=== PATIENT | male | born 1990 | race Caucasian/White ===

== ENCOUNTER 2018-05-05 20:32 | Emergency (ER) | payer SELFPAY ==
[~2018-05-05] VITALS: Ht 175.3 cm; Wt 74.8 kg
--- NOTE | 2018-05-05 20:32 | NUR ---
PATIENT PRESENTS TO ED WITH altered mental status etoh. PT BIBA [facility] STATES PATIENT WAS FOUND BY PD AT [facility]. AAOX3; PATIENT IS NON COOPERATIVE AND REFUSES TO ANSWER QUESTIONS DURING NURSING ASSESSMENT AND TRIAGE. PATIENT STATES "JUST KILL ME" WHEN ASKED ABOUT PRIOR HISTORY OF HARM TO SELF OR OTHERS PATIENT CONTINUES TO STATE "JUST KILL ME". PATIENS IS AGITATED AND RESTLESS AT THIS TIME. PATIENTS HR IS TACHY 120, RR EBVEN AND UNLABORED AT THIS TIME. PATIENT STATES HE WAS DRINKING BUT DOES NOT RECALL HOW MUCH. WILL CONTINUE TO MONITOR PATIENT AND WILL RE ASSESS AT A LATER TIME WHEN PATIENT IS COOPERATIVE. ER MD MADE AWARE OF PATIENT STATUS.
--- NOTE | 2018-05-05 20:32 | NUR ---
Patient BIBA BLS, transferred to bed 5. RN evaluating patient at bedside.
[2018-05-05 20:45] VITALS: BP 138/81
--- NOTE | 2018-05-05 21:35 | NUR ---
PATIENT AGITATED SITTING AT EDGE OF THE BED. PATIENT IS NON COOPERATIVE WITH STAFF AT THIS TIME. WILL CONTINUE TO TRY TO CALM PATIENT DOWN.
[2018-05-05 21:37] LABS: BASOPHILS # (AUTO) 0.2 K/uL (0.00-0.22); BASOPHILS % (AUTO) 1.2 % (0.0-2.0); EOSINOPHILS % (AUTO) 0.2 % (0.0-4.0); HEMATOCRIT 45.2 % (36-52); HEMOGLOBIN 15.4 g/dL (12.0-18.0); LYMPHOCYTES # (AUTO) 4.3 K/uL (2.0-11.5); LYMPHOCYTES % (AUTO) 24.2 % (20.5-51.1); MEAN CORPUSCULAR HEMOGLOBIN 28 pg (27-31); MEAN CORPUSCULAR HGB CONC 34 g/dL (33-37); MONOCYTES # (AUTO) 0.9 K/uL (0.8-1.0); MONOCYTES % (AUTO) 4.9 % (1.7-9.3); NEUTROPHILS # (AUTO) 12.5 K/uL (1.8-7.7); NEUTROPHILS % (AUTO) 69.5 % (42.2-75.2); PLATELET COUNT (AUTO) 393 K/uL (140-450); RED BLOOD CELL COUNT(AUTO) 5.44 MIL/uL (4.20-6.10); RED CELL DISTRIBUTION WIDTH 12.8 % (11.6-13.7)
[2018-05-05 21:51] LABS: POTASSIUM 3.3 mmol/L (3.5-5.1)
[2018-05-05 21:52] LABS: ANION GAP 16.6 (8-16); CARBON DIOXIDE 23.7 mmol/L (21-32); CREATININE 1.1 mg/dL (0.7-1.3)
--- NOTE | 2018-05-05 21:54 | NUR ---
PATIENT RESTING IN BED AT THIS TIME. ER MD MADE AWARE UNABLE TO GET URINE.
[2018-05-05 22:03] LABS: ALBUMIN 4.3 g/dL (3.4-5.0); TOTAL BILIRUBIN 0.2 mg/dL (0.0-1.0)
--- NOTE | 2018-05-06 00:03 | NUR ---
MOTHER AT BEDSIDE
--- NOTE | 2018-05-06 00:24 | NUR ---
URINE COLLECTED. SENT TO LAB. LESLI SPRING MADE AWARE.
[2018-05-06 01:02] LABS: BARBITURATE, URINE NEG. ng/ml (NEG <=200); BENZODIAZEPINE, URINE NEG. ng/mL (NEG <=200); CANNABINOID, URINE NEG. ng/mL (NEG <=50); COCAINE, URINE NEG. ng/mL (NEG <=300); OPIATE, URINE NEG. ng/mL (NEG <=2000); PHENCYCLIDINE SCREEN,URINE NEG. ng/mL (NEG <=25)
--- NOTE | 2018-05-06 02:03 | NUR ---
Patient discharged BY DR. ENNIS with v/s stable. Written and verbal after care instructions given and explained. Patient verbalized understanding. Ambulatory with steady gait. All questions addressed prior to discharge. Advised to follow up with PMD.
[2018-05-06 02:04] VITALS: BP 127/73
== END 2018-05-06 02:03 | disposition home or self-care (01) ==
LOC: MED 20:32
DX: F10.129 Alcohol abuse with intoxication, unspecified (principal); Y90.8 Blood alcohol level of 240 mg/100 ml or more
CPT/HCPCS: 36415; 80053; 80305; 85025; 99284; G0482

== ENCOUNTER 2019-02-04 20:34 | Emergency (ER) | payer MEDICAID ==
[~2019-02-04] VITALS: Ht 170.2 cm; Wt 113.2 kg
[2019-02-04 20:53] VITALS: BP 151/99
--- NOTE | 2019-02-04 21:27 | NUR ---
pt ambulated to bed 11
--- NOTE | 2019-02-04 21:42 | NUR ---
28 YO M BIB SELF TO ED C/O 5/10 ROLLE IN THE FRONTAL REGION. DENIES NVD, FEVER OR CHILLS. -- PT A/O X 4. SKIN PINK/DRY/INTACT. FOLLOWS COMMANDS AND BEHAVES APPROPRIATELY. -- PMH: HTN -- RX: NORVASC (DOES NOT TAKE REGULARLY) PT POSITIONED FOR COMFORT. HOB ELEVATED. SIDE RAIL UP X1. BED IN LOWEST POSITION. VSS. NO APPARENT DISTRESS AT THIS TIME.
--- NOTE | 2019-02-04 22:33 | NUR ---
DR. ENNIS EVALUATING AT BEDSIDE.
[2019-02-04 22:38] VITALS: BP 136/79
--- NOTE | 2019-02-04 22:38 | NUR ---
Patient discharged with v/s stable. Written and verbal after care instructions given and explained. Patient verbalized understanding. Ambulatory with steady gait. All questions addressed prior to discharge. Advised to follow up with PMD. Discharged by Dr. Kennedy.
== END 2019-02-04 22:38 | disposition home or self-care (01) ==
LOC: MED 20:34
DX: I10 Essential (primary) hypertension (principal)
CPT/HCPCS: 99283

== ENCOUNTER 2020-05-01 14:39 | Emergency (ER) | payer MEDICAID, OTHER ==
[~2020-05-01] VITALS: Ht 170.2 cm; Wt 95.3 kg
[2020-05-01 14:54] VITALS: BP 131/85
--- NOTE | 2020-05-01 14:57 | NUR ---
PT AMBULATED TO ER BED 03
--- NOTE | 2020-05-01 15:00 | NUR ---
XRAY AT BEDSIDE
--- NOTE | 2020-05-01 15:05 | NUR ---
C/O OUTER L FOOT PAIN S/P TRIPPING WHILE HIKING TODAY. NO OBVIOUS DEFORMITY NOTED TO FOOT. PT IS AMBULATORY WITH PAIN. CMS INTACT.
[2020-05-01] MEDS: KETOROLAC 30 MG/ML VIAL IM ONE (15:59)
[2020-05-01 16:20] VITALS: BP 131/85
== END 2020-05-01 16:20 | disposition home or self-care (01) ==
LOC: MED 14:39
DX: S92.352A Displaced fracture of fifth metatarsal bone, left foot, initial encounter for closed fracture (principal); S92.342A Displaced fracture of fourth metatarsal bone, left foot, initial encounter for closed fracture; I10 Essential (primary) hypertension; X58.XXXA Exposure to other specified factors, initial encounter; Y93.89 Activity, other specified; Y92.89 Other specified places as the place of occurrence of the external cause; Y99.8 Other external cause status
CPT/HCPCS: 73630; 96372; 99283; J1885; Q0092

== ENCOUNTER 2021-12-04 03:35 | Emergency (ER) | payer OTHER ==
[~2021-12-04] VITALS: Ht 170.2 cm; Wt 104.3 kg
[2021-12-04 03:41] VITALS: BP 150/98
--- NOTE | 2021-12-04 03:47 | NUR ---
LEFT EARACHE X 1 DAY. NO DRAINAGE OR DISCHARGE NOTED. DR ENNIS EXAMINING IN TRIAGE
[2021-12-04] MEDS ORDERED: AMOX-1000 PO (03:48)
[2021-12-04] MEDS ORDERED: NAPR-54 PO (03:48)
[2021-12-04 04:00] VITALS: BP 150/98
--- NOTE | 2021-12-04 04:00 | NUR ---
Patient discharged with v/s stable. Written and verbal after care instructions given and explained. Patient alert, oriented and verbalized understanding of instructions. Ambulatory with steady gait. All questions addressed prior to discharge. ID band removed. Patient advised to follow up with PMD. Rx of AUGMENTIN AND NAPROSYN given. Patient educated on indication of medication including possible reaction and side effects. Opportunity to ask questions provided and answered.
== END 2021-12-04 04:00 | disposition home or self-care (01) ==
LOC: MED 03:35
DX: H65.192 Other acute nonsuppurative otitis media, left ear (principal); I10 Essential (primary) hypertension; Z79.1 Long term (current) use of non-steroidal anti-inflammatories (NSAID); Z79.2 Long term (current) use of antibiotics
CPT/HCPCS: 99283

== ENCOUNTER 2023-04-17 20:18 | Emergency (ER) | payer OTHER ==
[~2023-04-17] VITALS: Ht 172.7 cm; Wt 131.5 kg
[~2023-04-17 20:18] MED LIST: AMOX-1000 PO; NAPR-54 PO
[2023-04-17 20:20] VITALS: BP 128/100
--- NOTE | 2023-04-17 20:23 | NUR ---
TO LOBBY A/W BED AMBULATORY
[2023-04-17] MEDS ORDERED: KETOROLAC 15 MG/ML VIAL IM ONE (20:50)
--- NOTE | 2023-04-17 21:03 | NUR ---
pt is complaining headache and right sided numbess. pt said that he is under stress lately, otherwise awalke alert and oriented x4.
--- NOTE | 2023-04-17 21:04 | NUR ---
PT TO BED #7
[2023-04-17 21:13] LABS: BASOPHILS # (AUTO) 0.1 K/uL (0.00-0.22); BASOPHILS % (AUTO) 0.6 % (0.0-2.0); EOSINOPHILS # (AUTO) 0.2 K/uL (0-0.4); EOSINOPHILS % (AUTO) 1.6 % (0.0-4.0); HEMATOCRIT 42.8 % (36-52); HEMOGLOBIN 14.3 g/dL (12.0-18.0); LYMPHOCYTES # (AUTO) 2.8 K/uL (2.0-11.5); LYMPHOCYTES % (AUTO) 21.3 % (20.5-51.1); MEAN CORPUSCULAR HEMOGLOBIN 28 pg (27-31); MEAN CORPUSCULAR HGB CONC 33 g/dL (33-37); MEAN CORPUSCULAR VOLUME 84.3 fL (80-94); MONOCYTES % (AUTO) 7.5 % (1.7-9.3); NEUTROPHILS # (AUTO) 9.1 K/uL (1.8-7.7); PLATELET COUNT (AUTO) 343 K/uL (140-450); RED BLOOD CELL COUNT(AUTO) 5.08 MIL/uL (4.20-6.10); WHITE BLOOD COUNT (AUTO) 13.2 K/uL (4.8-10.8)
[2023-04-17] MEDS ORDERED: IBUP-1842 PO (21:23)
[2023-04-17 21:29] LABS: ANION GAP 11.1 (8-16); CARBON DIOXIDE 28.8 mmol/L (21-32); CREATININE 1.1 mg/dL (0.6-1.3); POTASSIUM 3.9 mmol/L (3.5-5.1)
[2023-04-17 22:07] VITALS: BP 142/97
== END 2023-04-17 22:08 | disposition home or self-care (01) ==
LOC: MED 20:18
DX: R51.9 Headache, unspecified (principal); R20.0 Anesthesia of skin; I10 Essential (primary) hypertension; Z79.899 Other long term (current) drug therapy
CPT/HCPCS: 36415; 80048; 85025; 96372; 99283; J1885

== ENCOUNTER 2023-06-26 15:28 | Emergency (ER) | payer OTHER ==
[~2023-06-26] VITALS: Ht 172.7 cm; Wt 131.5 kg
[~2023-06-26 15:28] MED LIST changes: +IBUP-1842 PO
[2023-06-26 15:35] VITALS: BP 134/90; PULSE 81; RESP 17; TEMP 97.9; O2SAT 97
[2023-06-26 16:21] LABS: BASOPHILS # (AUTO) 0.1 K/uL (0.00-0.22); BASOPHILS % (AUTO) 0.6 % (0.0-2.0); EOSINOPHILS # (AUTO) 0.2 K/uL (0-0.4); HEMATOCRIT 44.2 % (36-52); HEMOGLOBIN 14.6 g/dL (12.0-18.0); LYMPHOCYTES # (AUTO) 2.9 K/uL (2.0-11.5); LYMPHOCYTES % (AUTO) 25.2 % (20.5-51.1); MEAN CORPUSCULAR HEMOGLOBIN 29 pg (27-31); MEAN CORPUSCULAR HGB CONC 33 g/dL (33-37); MEAN CORPUSCULAR VOLUME 86.5 fL (80-94); MONOCYTES # (AUTO) 0.9 K/uL (0.8-1.0); NEUTROPHILS # (AUTO) 7.5 K/uL (1.8-7.7); NEUTROPHILS % (AUTO) 64.2 % (42.2-75.2); PLATELET COUNT (AUTO) 346 K/uL (140-450); RED BLOOD CELL COUNT(AUTO) 5.12 MIL/uL (4.20-6.10); RED CELL DISTRIBUTION WIDTH 13.4 % (11.6-13.7); WHITE BLOOD COUNT (AUTO) 11.6 K/uL (4.8-10.8)
[2023-06-26] MEDS ORDERED: IBUP-2213 PO (16:38)
[2023-06-26 16:46] LABS: ALBUMIN 3.6 g/dL (3.4-5.0); ANION GAP 10.3 (8-16); CALCIUM 8.7 mg/dL (8.5-10.1); CARBON DIOXIDE 29.5 mmol/L (21-32); CREATININE 1.1 mg/dL (0.6-1.3); POTASSIUM 3.8 mmol/L (3.5-5.1); TOTAL BILIRUBIN 0.3 mg/dL (0.0-1.0); TOTAL PROTEIN, SERUM 7.5 g/dL (6.4-8.2)
[2023-06-26 17:03] VITALS: BP 135/89; PULSE 79; RESP 18; TEMP 97.9; O2SAT 97
== END 2023-06-26 17:03 | disposition home or self-care (01) ==
LOC: MED 15:28
DX: K42.9 Umbilical hernia without obstruction or gangrene (principal); Z79.899 Other long term (current) drug therapy
CPT/HCPCS: 36415; 80053; 83690; 85025; 99284

== ENCOUNTER 2024-03-22 18:06 | Emergency (ER) | payer OTHER ==
[~2024-03-22] VITALS: Ht 172.7 cm; Wt 99.8 kg
[~2024-03-22 18:06] MED LIST changes: +IBUP-2213 PO; +NAPR-337 PO; -NAPR-54 PO
[2024-03-22 18:14] VITALS: BP 136/81; PULSE 103; RESP 20; TEMP 98.4; O2SAT 95
[2024-03-22] MEDS: ACETAMINOPHEN EXTRA STRENGTH 500 MG TAB PO ONE (19:25)
[2024-03-22] MEDS ORDERED: ACET-10509 PO (19:42)
[2024-03-22] MEDS ORDERED: BACTO TP (19:42)
== END 2024-03-22 20:24 ==
LOC: MED 18:06
DX: S50.01XA Contusion of right elbow, initial encounter (principal); S09.90XA Unspecified injury of head, initial encounter; Z79.899 Other long term (current) drug therapy; V49.88XA Car occupant (driver) (passenger) injured in other specified transport accidents, initial encounter; Y93.89 Activity, other specified; Y92.89 Other specified places as the place of occurrence of the external cause; Y99.8 Other external cause status
CPT/HCPCS: 70450; 73080; 73130; 90471; 90715; 99285